=== PATIENT | female | born 1980 | race Hispanic/Latino ===

== ENCOUNTER 2016-12-26 21:25 | Emergency (ER) | payer OTHER ==
[~2016-12-26] VITALS: Ht 124.5 cm; Wt 44.1 kg
[2016-12-26 22:52] LABS: ADD MIUA? YES; BILIRUBIN NEGATIVE; BLOOD SMALL; COLOR YELLOW ((YELLOW)); GLUCOSE (STRIP) NEGATIVE; KETONES 20; LEUKOCYTES NEGATIVE; NITRITE NEGATIVE; PROTEIN (STRIP) NEGATIVE; SPECIFIC GRAVITY 1.013 (1.000-1.030); UROBILINOGEN 0.2 MG/DL (0.2-1.0)
[2016-12-26 22:56] LABS: BACTERIA NONE SEEN /HPF; EPITHELIAL CELLS RARE /HPF; MUCUS TRACE /LPF; RED BLOOD CELLS 0-5 /HPF (0-5); UCUL ADDED? NO; WHITE BLOOD CELLS 0-5 /HPF (0-5)
[2016-12-27 00:29] LABS: HEMATOCRIT 44.4 % (36.0-46.0); MCHC 33.3 G/DL (30.0-36.0); MCV 86.9 FL (83-99); MEAN PLAT.VOLUME 9.3 uM^3 (9.5-12.4); PLATELET COUNT 304 K/uL (156-360); RBC DIS.WIDTH-CV 12.4 % (11.8-14.6); RBC DIS.WIDTH-SD 39.5 % (39-53); RED BLOOD COUNT 5.11 M/uL (3.80-5.20); WHITE BLOOD COUNT 10.6 K/uL (4.1-10.2)
[2016-12-27 00:42] LABS: CHLORIDE 101 mEq/L (99-109); POTASSIUM 3.9 mEq/L (3.7-5.4); SODIUM 139 mEq/L (136-147)
[2016-12-27 00:43] LABS: GLUCOSE 85 mg/dL (70-99)
[2016-12-27 00:45] LABS: ANION GAP 14 MEQ/L (2-14)
[2016-12-27 00:47] LABS: GFR ESTIMATE (CALCULATED) > 59 mL/min/
[2016-12-27 00:48] LABS: UREA NITROGEN (BUN) 8 mg/dL (9-23)
[2016-12-27] MEDS ORDERED: ULTRAM50 MG PO (01:41)
[2016-12-27 02:13] VITALS: BP 123/88
== END 2016-12-27 02:13 | disposition home or self-care (01) ==
LOC: EME 21:25
PROVIDERS: Physician Assistant Medical
DX: S22.41XA Multiple fractures of ribs, right side, initial encounter for closed fracture (principal); X58.XXXA Exposure to other specified factors, initial encounter; R31.9 Hematuria, unspecified
CPT/HCPCS: 74176; 80048; 81003; 85027; 99281; 99284